=== PATIENT | female | born 1990 | race American Indian/Alaskan Native ===

== ENCOUNTER 2019-02-24 15:57 | Emergency (ER) | payer OTHER ==
--- NOTE | 2019-02-24 16:05 | Emergency Department Report ---
Blank Doc - Documentation Documentation: This is a 28-year-old female that presents with syncopal episode. Stated has headache and lightheadness. This initial assessment/diagnostic orders/clinical plan/treatment(s) is/are subject to change based on patient's health status, clinical progression and re- assessment by fellow clinical providers in the ED. Further treatment and workup at subsequent clinical providers discretion. Patient/guardians urged not to elope from the ED as their condition may be serious if not clinically assessed and managed. Initial orders include: 1- Patient sent to [facility] for further evaluation and treatment 2- EKG 3- labs
[2019-02-24 16:42] LABS: BUN/Creatinine Ratio 15; Blood Urea Nitrogen 9 mg/dL (7-17); Calcium 9.3 mg/dL (8.4-10.2); Hemolysis Index 14
[2019-02-24 17:18] LABS: Hematocrit 34.7 % (30.3-42.9); Hemoglobin 11.4 gm/dl (10.1-14.3); Mean Corpuscular HGB Conc 33 % (30-34); Mean Corpuscular Volume 88 fl (79-97); Platelet Count 262 K/mm3 (140-440); Red Blood Count 3.93 M/mm3 (3.65-5.03); Red Cell Distribution Width 15.8 % (13.2-15.2)
--- NOTE | 2019-02-24 18:04 | Cat Scan Report ---
CT head/brain wo con INDICATION: Syncope. TECHNIQUE: Routine CT head without contrast. Sagittal and coronal reformatted images were obtained. All CT scans at this location are performed using CT dose reduction for ALARA by means of automated e xposure control COMPARISON: None. FINDINGS: BRAIN / INTRACRANIAL CONTENTS: No acute hemorrhage, mass effect, midline shift, hydrocephalus, or acu te, large territorial infarct. No chronic infarct or focal atrophy. Normal brain volume and ventricul ar/sulcal size for age. Right temporal horn tip is slightly larger. No significant white matter abnor mality. Folia in the cerebellar vermis are prominent. CRANIOCERVICAL JUNCTION: No significant abnormality. ORBITS: No significant abnormality of visualized orbits. SINUSES / MASTOIDS: No significant abnormality of the visualized paranasal sinuses or mastoid air [place] ls. ADDITIONAL FINDINGS: None. IMPRESSION: I do not see an acute parenchymal lesion in the brain. Signer Name: Sheri Londono MD Signed: 02/24/2019 6:00 PM Workstation Name: [id number]
[2019-02-24] MEDS ORDERED: NACL 0.9% 1000 ML 1,000 ML ONE (18:10)
[2019-02-24] MEDS ORDERED: NACL 0.9% 1000 ML 1,000 ML IV ONE (18:13)
--- NOTE | 2019-02-24 18:13 | Emergency Department Report ---
ED Syncope HPI - General Chief Complaint: Syncope Stated Complaint: PASSED OUT Time Seen by Provider: 02/24/19 16:04 Source: patient Exam Limitations: no limitations - History of Present Illness Initial Comments: 28-year-old female presents to ED following syncopal episode at work. Patient reports flulike symptoms since yesterday which includes headache, sore throat, fever and chills, diarrhea. Patient states the only thing that she has eaten today was a couple of grapes. The patient states she sits at a desk at work. When she got ready to stand up, she felt faint and lightheaded, and then passed out. Patient denies any chest pain or shortness of breath. Timing/Prior Episodes: single episode today Precipitating Factors: Positive: lightheadedness Context: standing Loss of Consciousness: brief (seconds) Current Symptoms: back to normal - Related Data Allergies/Adverse Reactions: Allergies No Known Allergies Allergy (Verified 02/24/19 16:03) Home Medications: Ambulatory Orders Fluconazole [Diflucan 200] 150 mg PO ONCE #1 tablet 06/27/14 Ibuprofen [Motrin 800 MG tab] 800 mg PO Q8H PRN #21 tablet 06/27/14 Penicillin Vk [Veetids TAB] 500 mg PO QID #40 tablet 06/27/14 ED Review of Systems ROS: Stated complaint: PASSED OUT Other details as noted in HPI Comment: All other systems reviewed and negative Constitutional: chills, fever Respiratory: cough. denies: shortness of breath Cardiovascular: denies: chest pain Gastrointestinal: diarrhea. denies: abdominal pain, nausea, vomiting Neurological: headache ED Past Medical Hx - Past Medical History Previous Medical History?: No - Surgical History Past Surgical History?: Yes Additional Surgical History: tonsillectomy - Social History Smoking Status: Never Smoker Substance Use Type: None - Medications Home Medications: Home Medications Medication Instructions Recorded Confirmed Last Taken Type Fluconazole [Diflucan 200] 150 mg PO ONCE #1 tablet 06/27/14 Unknown Rx Ibuprofen [Motrin 800 MG tab] 800 mg PO Q8H PRN #21 tablet 14 Unknown Rx Penicillin Vk [Veetids TAB] 500 mg PO QID #40 tablet 06/27/14 Unknown Rx ED Physical Exam - General Limitations: No Limitations General appearance: alert, in no apparent distress - Head Head exam: Present: atraumatic, normocephalic - Eye Eye exam: Present: normal appearance, PERRL, EOMI - ENT ENT exam: Present: normal orophraynx, mucous membranes moist - Neck Neck exam: Present: normal inspection - Respiratory Respiratory exam: Present: normal lung sounds bilaterally. Absent: respiratory distress - Cardiovascular Cardiovascular Exam: Present: regular rate, normal rhythm - GI/Abdominal GI/Abdominal exam: Present: soft. Absent: distended, tenderness - Extremities Exam Extremities exam: Present: normal inspection - Neurological Exam Neurological exam: Present: alert, oriented X3, CN II-XII intact. Absent: motor sensory deficit - Psychiatric Psychiatric exam: Present: normal affect, normal mood - Skin Skin exam: Present: warm, dry, intact, normal color ED Course Vital Signs 02/24/19 02/24/19 02/24/19 16:04 17:15 17:26 Temperature 98.7 F Pulse Rate 81 Respiratory 18 12 Rate Blood Pressure 111/67 Blood Pressure [Left] O2 Sat by Pulse 100 100 100 Oximetry 02/24/19 02/24/19 17:29 19:27 Temperature 98.8 F Pulse Rate 86 76 Respiratory 12 21 Rate Blood Pressure Blood Pressure 103/63 129/77 [Left] O2 Sat by Pulse 100 98 Oximetry ED Medical Decision Making - Lab Data Result diagrams: 02/24/19 16:13 02/24/19 16:13 - EKG Data -: EKG Interpreted by Me EKG shows normal: sinus rhythm, axis, intervals, QRS complexes, ST-T waves Rate: normal - EKG Data Interpretation: no acute changes - Medical Decision Making Patient feeling much better at this. Vital signs stable. IV fluids given. Labs unremarkable. Will d/c home. Return precautions given. - Differential Diagnosis dehydration, , arrythmia Critical care attestation.: If time is entered above; I have spent that time in minutes in the direct care of this critically ill patient, excluding procedure time. ED Disposition Clinical Impression: Viral illness, Syncope, Dehydration Disposition: -01 TO HOME OR SELFCARE Is pt being admited?: No Condition: Stable Instructions: Dehydration (ED), Syncope (ED), Viral Syndrome (ED) Referrals: HILL VALDEZ MD [Primary Care Provider] - 3-5 Days PRIMARY CAREMD [Referring] - 3-5 Days Forms: Work/School Release Form(ED) Time of Disposition: 19:27
[2019-02-24 18:18] LABS: Bilirubin,Urine NEG (Negative); Blood,Urine NEG (Negative); Color,Urine Yellow (Yellow); Mucus,Urine 2+ /HPF; Urobilinogen,Urine < 2.0 mg/dL (<2.0)
[2019-02-24 19:24] LABS: Basophils % (Manual) 0 % (0.0-1.8); Total Cells Counted 100
[2019-02-24 19:25] LABS: Anisocytosis 1+; Platelet Estimate Consistent w Auto; Poikilocytosis 1+
[2019-02-24 19:28] VITALS: BP 129/77
== END 2019-02-24 19:37 | disposition home or self-care (01) ==
LOC: ED 15:57
DX: E86.0 Dehydration (principal); B34.9 Viral infection, unspecified; Z90.89 Acquired absence of other organs
CPT/HCPCS: 36415; 70450; 80048; 81001; 84703; 85007; 85025; 93005; 93010; 96360; 99284; J7030

== ENCOUNTER 2019-05-02 09:04 | Emergency (ER) | payer OTHER ==
[2019-05-02 09:11] VITALS: BP 104/48
[2019-05-02 09:46] LABS: Bilirubin,Urine NEG (Negative); Blood,Urine NEG (Negative); Color,Urine Yellow (Yellow); Mucus,Urine FEW /HPF; Protein,Urine <15 mg/dL mg/dL (Negative); Urobilinogen,Urine < 2.0 mg/dL (<2.0)
[2019-05-02 09:52] LABS: HCG Qualitative,Urine Negative (Negative)
--- NOTE | 2019-05-02 11:17 | Emergency Department Report ---
ED Abdominal Pain HPI - General Chief Complaint: Abdominal Pain Stated Complaint: ABDOMINAL PAIN Time Seen by Provider: 05/02/19 09:14 Source: patient Mode of arrival: Ambulatory Limitations: No Limitations - History of Present Illness Initial Comments: Patient is a 29-year-old female is presenting with 3 days of suprapubic and right flank pain. Patient states pain is 9 out of 10 in severity. Patient has some dysuria but denies urinary frequency. Patient states is been no fevers chills nausea vomiting or diarrhea. She denies vaginal discharge. - Related Data Previous Rx's Medication Instructions Recorded Last Taken Type Fluconazole [Diflucan 200] 150 mg PO ONCE #1 tablet 06/27/14 Unknown Rx Ibuprofen [Motrin 800 MG tab] 800 mg PO Q8H PRN #21 tablet 06/27/14 Unknown Rx Penicillin Vk [Veetids TAB] 500 mg PO QID #40 tablet 06/27/14 Unknown Rx metroNIDAZOLE [Flagyl] 500 mg PO Q12HR #14 tab 05/02/19 Unknown Rx Allergies Allergy/AdvReac Type Severity Reaction Status Date / Time No Known Allergies Allergy Verified 05/02/19 09:10 ED Review of Systems ROS: Stated complaint: ABDOMINAL PAIN Other details as noted in HPI Comment: All other systems reviewed and negative ED Past Medical Hx - Past Medical History Previous Medical History?: No - Surgical History Past Surgical History?: Yes Additional Surgical History: tonsillectomy - Social History Smoking Status: Light Tobacco Smoker Substance Use Type: Alcohol - Medications Home Medications: Home Medications Medication Instructions Recorded Confirmed Last Taken Type Fluconazole [Diflucan 200] 150 mg PO ONCE #1 tablet 06/27/14 Unknown Rx Ibuprofen [Motrin 800 MG tab] 800 mg PO Q8H PRN #21 tablet 06/27/14 Unknown Rx Penicillin Vk [Veetids TAB] 500 mg PO QID #40 tablet 06/27/14 Unknown Rx metroNIDAZOLE [Flagyl] 500 mg PO Q12HR #14 tab 05/02/19 Unknown Rx ED Physical Exam - General Limitations: No Limitations General appearance: alert, in no apparent distress - Head Head exam: Present: atraumatic, normocephalic - Eye Eye exam: Present: normal appearance - ENT ENT exam: Present: mucous membranes moist - Neck Neck exam: Present: normal inspection - Respiratory Respiratory exam: Present: normal lung sounds bilaterally. Absent: respiratory distress, wheezes, rales, rhonchi - Cardiovascular Cardiovascular Exam: Present: regular rate, normal rhythm. Absent: systolic murmur, diastolic murmur, rubs, gallop - GI/Abdominal GI/Abdominal exam: Present: soft, tenderness (suprapubic), normal bowel sounds. Absent: distended, guarding, rebound, rigid - External exam: Present: normal external exam Speculum exam: Present: vaginal discharge, cervical discharge Bi-manual exam: Absent: cervical motion tendernes - Extremities Exam Extremities exam: Present: normal inspection - Back Exam Back exam: Present: normal inspection. Absent: CVA tenderness (R), CVA tenderness (L) - Neurological Exam Neurological exam: Present: alert, oriented X3 - Psychiatric Psychiatric exam: Present: normal affect, normal mood - Skin Skin exam: Present: warm, dry, intact, normal color. Absent: rash ED Course Vital Signs 05/02/19 09:10 Temperature 98.3 F Pulse Rate 80 Respiratory 16 Rate Blood Pressure 104/48 [Left] O2 Sat by Pulse 95 Oximetry ED Medical Decision Making - Lab Data Lab Results 05/02/19 Range/Units 09:28 Urine Color Yellow (Yellow) Urine Turbidity Slightly-cloudy (Clear) Urine pH 6.0 (5.0-7.0) Ur Specific [place] 1.016 (1.003-1.030) Urine Protein <15 mg/dl (Negative) mg/dL Urine Glucose (UA) Neg (Negative) mg/dL Urine Ketones Neg (Negative) mg/dL Urine Blood Neg (Negative) Urine Nitrite Neg (Negative) Urine Bilirubin Neg (Negative) Urine Urobilinogen < 2.0 (<2.0) mg/dL Ur Leukocyte Esterase Neg (Negative) Urine WBC (Auto) 2.0 (0.0-6.0) /HPF Urine RBC (Auto) 2.0 (0.0-6.0) /HPF U Epithel Cells (Auto) 7.0 (0-13.0) /HPF Urine Mucus Few /HPF Urine HCG, Qual Negative (Negative) - Medical Decision Making Patient's urinalysis was inconsistent with an acute cystitis. Pelvic exam was done which show that the patient does have a white vaginal discharge. Wet prep shows the patient does have clue cells present consistent with bacterial vaginitis. Patient be started on Flagyl and discharged home. Critical care attestation.: If time is entered above; I have spent that time in minutes in the direct care of this critically ill patient, excluding procedure time. ED Disposition Clinical Impression: Bacterial vaginitis Disposition: - TO HOME OR SELFCARE Is pt being admited?: No Does the pt Need Aspirin: No Condition: Stable Instructions: Bacterial Vaginosis (ED) Referrals: PRIMARY CARE, [Primary Care Provider] - 3-5 Days Time of Disposition: 11:17
== END 2019-05-02 11:21 | disposition home or self-care (01) ==
LOC: ED 09:04
DX: N76.0 Acute vaginitis (principal); F17.200 Nicotine dependence, unspecified, uncomplicated
CPT/HCPCS: 81001; 81025; 87086; 87210; 87591

== ENCOUNTER 2019-11-29 12:19 | Outpatient (CLI) | payer MEDICAID ==
[2019-11-29] MEDS ORDERED: LACTATED RINGERS 500 ML IV ONE (12:40)
[2019-11-29 12:54] VITALS: BP 111/63
[2019-11-29 13:20] LABS: Bilirubin,Urine NEG (Negative); Blood,Urine NEG (Negative); Color,Urine Yellow (Yellow); Mucus,Urine FEW /HPF; Protein,Urine <15 mg/dL mg/dL (Negative); Urobilinogen,Urine < 2.0 mg/dL (<2.0)
[2019-11-29] MEDS ORDERED: ACETAMINOPHEN 500 MG TAB PO ONE (13:41)
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
== END 2019-11-29 18:35 | disposition home or self-care (01) ==
LOC: TRG 12:19 → APU 12:21 → TRG 18:35
PROVIDERS: ATTEND Obstetrics & Gynecology
DX: O26.892 Other specified pregnancy related conditions, second trimester (principal); R10.30 Lower abdominal pain, unspecified; M54.5 Low back pain; O99.322 Drug use complicating pregnancy, second trimester; F12.90 Cannabis use, unspecified, uncomplicated; Z3A.24 24 weeks gestation of pregnancy; Z87.891 Personal history of nicotine dependence
CPT/HCPCS: 59025; 76815; 76819; 81001; J7120; 96360

== ENCOUNTER 2019-12-01 16:09 | Outpatient (CLI) | payer MEDICAID ==
[2019-12-01] MEDS ORDERED: LACTATED RINGERS 500 ML IV ONE (16:51)
[2019-12-01 17:10] VITALS: BP 115/68
[2019-12-01 17:30] LABS: Bacteria,Urine 1+ /HPF (Negative); Bilirubin,Urine NEG (Negative); Blood,Urine NEG (Negative); Color,Urine Yellow (Yellow); Mucus,Urine FEW /HPF; Protein,Urine <15 mg/dL mg/dL (Negative); Urobilinogen,Urine < 2.0 mg/dL (<2.0)
== END 2019-12-01 18:35 | disposition left against medical advice (07) ==
LOC: TRG 16:09 → APU 16:10 → TRG 18:35
PROVIDERS: ATTEND Obstetrics & Gynecology
DX: O47.00 False labor before 37 completed weeks of gestation, unspecified trimester (principal); Z3A.00 Weeks of gestation of pregnancy not specified
CPT/HCPCS: 81001

== ENCOUNTER 2019-12-02 09:42 | Outpatient (CLI) | payer MEDICAID ==
[2019-12-02] MEDS ORDERED: LACTATED RINGERS 500 ML IV ONE (10:33)
--- NOTE | 2019-12-02 11:21 | Ultrasound Report ---
ULTRASOUND ABDOMEN, COMPLETE INDICATION: Abdominal pain COMPARISON: None available. FINDINGS: Pancreas: Normal. Abdominal Aorta: Normal. IVC: Normal. Liver: Normal. Gallbladder: Normal. Bile ducts: Normal. Common Bile Duct measures 5-6 mm. Right Kidney: Normal. Left Kidney: Normal. Spleen: Normal. Free fluid: None. Additional Findings: There is suggestion of uterine fundal fibroid measuring approximately 3 cm. IMPRESSION: 1. Common duct measures 5-6 mm in diameter which is approaching the upper limits of normal. No choled ocholithiasis or cholelithiasis. 2. No hydronephrosis. 3. Probable 3 cm uterine fundal fibroid. Signer Name: Chandan Simms MD Signed: 12/02/2019 11:17 AM Workstation Name: [id number]
== END 2019-12-02 11:42 | disposition home or self-care (01) ==
LOC: TRG 09:42 → APU 09:43 → TRG 11:42
PROVIDERS: ATTEND Obstetrics & Gynecology
DX: O26.892 Other specified pregnancy related conditions, second trimester (principal); R10.9 Unspecified abdominal pain; Z3A.25 25 weeks gestation of pregnancy
CPT/HCPCS: 59025; 76700

== ENCOUNTER 2019-12-20 19:06 | Outpatient (CLI) | payer MEDICAID, OTHER ==
[2019-12-20 19:37] VITALS: BP 128/71
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
== END 2019-12-20 22:13 | disposition left against medical advice (07) ==
LOC: TRG 19:06
PROVIDERS: ATTEND Obstetrics & Gynecology
DX: O26.892 Other specified pregnancy related conditions, second trimester (principal); Z3A.27 27 weeks gestation of pregnancy; X58.XXXD Exposure to other specified factors, subsequent encounter; Y93.89 Activity, other specified; Y92.89 Other specified places as the place of occurrence of the external cause; Y99.8 Other external cause status
CPT/HCPCS: 59025; 76815

== ENCOUNTER 2020-04-04 09:58 | Observation (INO) | payer MEDICAID ==
[2020-04-04] MEDS ORDERED: LACTATED RINGERS 1,000 ML IV SCH (10:00)
[2020-04-04] MEDS ORDERED: hydrALAZINE 20 MG/1 ML INJ IV PRN (11:04)
[2020-04-04] MEDS ORDERED: MAGNESIUM SULFATE 4 GM/100 ML BAG IV ONE (12:00)
[2020-04-04] MEDS ORDERED: CALCIUM GLUCONATE 1000 MG/10 ML INJ IV NR (12:00)
--- NOTE | 2020-04-04 12:46 | History and Physical Report ---
History of Present Illness Date of examination: 04/04/20 Date of admission: 04/04/20 10:28 Chief complaint: High blood pressure History of present illness: Pt is a 29 yo at 2 weeks s/p primary LTCS at 40 weeks EGA who presents from [employer] for severe range BP at a routine visit. BP at the office was 150/119, followed by 170/104. She denies CHAVIRA, scotomata, face/arm swelling. She is breast feeding. Past History Past Medical History: no pertinent history Past Surgical History: tonsillectomy, section Social history: no significant social history - Obstetrical History : 4 Para: 1 Hx # Term Pregnancies: 1 Spontaneous Abortions: 3 (1 ectopic, 2 SAB) Number of Living Children: 1 Medications and Allergies Allergies Allergy/AdvReac Type Severity Reaction Status Date / Time No Known Allergies Allergy Verified 05/02/19 09:10 Home Medications Medication Instructions Recorded Confirmed Last Taken Type Plus Tablet 1 tab PO DAILY 03/17/20 04/04/20 03/16/20 10:00 History Ibuprofen [Motrin] 800 mg PO Q8HR PRN #60 tablet 03/20/20 04/04/20 04/03/20 18:00 Rx oxyCODONE /ACETAMINOPHEN [Percocet 1 tab PO Q6HR PRN #30 tablet 03/20/20 04/04/20 04/03/20 22:00 Rx 5/325] Ferrous Sulfate [Feosol 325 MG tab] 325 mg PO BID #60 tablet 03/21/20 04/04/20 04/04/20 09:00 Rx Active Meds: Active Medications Calcium Gluconate (Calcium Gluconate) 1,000 mg IV PRN NR Stop: 04/04/20 23:59 Hydralazine HCl (Apresoline) 5 mg IV Q30MIN PRN PRN Reason: Hypertension Lactated Ringer's (Lactated Ringers) 1,000 mls @ 125 mls/hr IV DIRECT MUKESH Magnesium Sulfate (Magnesium Sulfate 40gm/1000ml) 40 gm in 1,000 mls @ 50 mls/hr IV DIRECT MUKESH Labetalol HCl (Labetalol) 200 mg PO BID MUKESH Review of Systems All systems: negative Eyes: no blurred vision Ears, nose, mouth and throat: no headache Cardiovascular: no edema - Vital Signs Vital signs: Vital Signs Pulse Ox 90 03/19/20 15:53 Temp Pulse Resp BP Pulse Ox 98.7 F 90 18 150/101 89 04/04/20 11:11 04/04/20 12:42 04/04/20 11:11 04/04/20 12:35 04/04/20 12:42 - Physical Exam Lungs: Positive: Normal air movement Abdomen: Positive: soft Uterus: Positive: other (fundus 1fb below umbilicus) Results Result Diagrams: 04/04/20 12:43 All other labs normal. Assessment and Plan A: 29 yo at 2 weeks Preeclampsia with severe features Lactating P: Admit to L&D PIH labs Magnesium sulfate infusion x24 hours PO Labetalol BID Rescue Hydralazine PRN Breast pumping support
[2020-04-04 12:59] LABS: Hemoglobin 13.5 gm/dl (10.1-14.3); Mean Corpuscular HGB Conc 34 % (30-34); Mean Corpuscular Volume 94 fl (79-97); Platelet Count 372 K/mm3 (140-440); Red Blood Count 4.24 M/mm3 (3.65-5.03); Red Cell Distribution Width 14.6 % (13.2-15.2)
[2020-04-04] MEDS: MAGNESIUM SULFATE 40GM/1000ML 40 GM/1,000 ML BAG IV SCH (13:17)
[2020-04-04 13:18] LABS: Alanine Aminotransferase 15 units/L (7-56); Blood Urea Nitrogen 11 mg/dL (7-17); Calcium 9.3 mg/dL (8.4-10.2); Hemolysis Index 4
[2020-04-04 13:20] LABS: BUN/Creatinine Ratio 22; Bilirubin,Direct < 0.2 mg/dL (0-0.2)
[2020-04-04 17:42] LABS: Bilirubin,Urine NEG (Negative); Blood,Urine SM (Negative); Color,Urine Colorless (Yellow); Protein,Urine <15 mg/dL mg/dL (Negative); RBC,Urine < 1.0 /HPF (0.0-6.0); Urobilinogen,Urine < 2.0 mg/dL (<2.0)
[2020-04-04] MEDS: ACETAMINOPHEN 325 MG TAB PO PRN (23:00)
--- NOTE | 2020-04-05 07:02 | Progress Note ---
Assessment and Plan A: Readmission on preeclampsia on magnesium sulfate P: Complete 24 hrs of magnesium. Pt asks to be discharged later tonight if possible. Subjective - Subjective Date of service: 04/05/20 Principal diagnosis: preeclampsia Interval history: Pt feels well. No headache, blurry vision or RUQ pain. Patient reports: appetite normal, voiding normally, pain well controlled, no ambulating normally (SCDs in place ) Objective - Vital Signs Latest vital signs: Vital Signs Temp Pulse Resp BP BP Pulse Ox 04/05/20 06:56 74 139/87 04/05/20 06:54 82 99 04/05/20 06:52 77 92 04/05/20 06:49 80 98 04/05/20 06:44 70 99 04/05/20 06:39 72 98 04/05/20 06:34 70 98 04/05/20 06:29 69 98 04/05/20 06:27 69 135/70 04/05/20 06:24 83 98 04/05/20 06:19 74 98 04/05/20 06:14 70 99 04/05/20 06:09 72 98 04/05/20 06:04 77 98 04/05/20 05:59 74 99 04/05/20 05:56 73 146/92 04/05/20 05:54 79 98 04/05/20 05:49 66 98 04/05/20 05:44 68 97 04/05/20 05:39 95 H 97 04/05/20 05:34 71 97 04/05/20 05:29 69 97 04/05/20 05:26 69 131/74 04/05/20 05:24 71 97 04/05/20 05:19 71 97 04/05/20 05:14 71 98 04/05/20 05:09 69 97 04/05/20 05:04 67 98 04/05/20 04:59 67 98 04/05/20 04:57 64 143/78 04/05/20 04:54 67 98 04/05/20 04:49 64 97 04/05/20 04:44 68 98 04/05/20 04:39 71 99 04/05/20 04:34 70 99 04/05/20 04:29 69 98 04/05/20 04:26 70 141/88 04/05/20 04:24 73 99 04/05/20 04:19 75 98 04/05/20 04:14 75 98 04/05/20 04:09 78 98 04/05/20 04:04 82 97 04/05/20 03:59 77 97 04/05/20 03:56 72 148/92 04/05/20 03:54 72 97 04/05/20 03:49 74 98 04/05/20 03:44 71 98 04/05/20 03:39 70 98 04/05/20 03:34 69 97 04/05/20 03:29 70 98 04/05/20 03:27 67 121/58 04/05/20 03:24 70 98 04/05/20 03:19 69 98 04/05/20 03:14 69 98 04/05/20 03:09 65 99 04/05/20 03:04 66 99 04/05/20 02:59 65 99 04/05/20 02:57 83 128/74 04/05/20 02:54 80 98 04/05/20 02:49 73 98 04/05/20 02:44 70 98 04/05/20 02:39 67 98 04/05/20 02:34 81 97 04/05/20 02:29 84 98 04/05/20 02:27 80 147/65 04/05/20 02:24 88 99 04/05/20 02:19 79 100 04/05/20 02:14 80 99 04/05/20 02:09 71 100 04/05/20 02:04 67 100 04/05/20 01:59 75 100 04/05/20 01:57 82 132/81 04/05/20 01:54 70 100 04/05/20 01:49 68 100 04/05/20 01:44 72 98 04/05/20 01:39 88 98 04/05/20 01:34 69 99 04/05/20 01:29 73 97 04/05/20 01:27 83 110/55 94 04/05/20 01:24 69 98 04/05/20 01:19 88 98 04/05/20 01:14 72 96 04/05/20 01:09 72 96 04/05/20 01:04 71 96 04/05/20 00:59 70 97 04/05/20 00:57 70 110/62 04/05/20 00:54 71 97 04/05/20 00:49 68 97 04/05/20 00:44 66 97 04/05/20 00:39 61 97 04/05/20 00:34 65 98 04/05/20 00:29 69 97 04/05/20 00:27 64 110/61 04/05/20 00:24 76 99 04/05/20 00:19 77 97 04/05/20 00:14 80 98 04/05/20 00:09 75 99 04/05/20 00:04 70 99 04/04/20 23:59 74 98 04/04/20 23:56 73 121/79 04/04/20 23:54 80 98 04/04/20 23:49 83 99 04/04/20 23:44 80 97 04/04/20 23:39 79 98 04/04/20 23:34 86 98 04/04/20 23:29 81 98 04/04/20 23:26 78 130/86 04/04/20 23:24 78 99 04/04/20 23:19 77 97 04/04/20 23:14 80 97 04/04/20 23:09 84 98 04/04/20 23:04 76 99 04/04/20 22:59 74 97 04/04/20 22:57 81 136/95 04/04/20 22:54 81 98 04/04/20 22:53 73 94 04/04/20 22:49 77 97 04/04/20 22:42 73 97 04/04/20 22:37 73 97 04/04/20 22:34 69 94 04/04/20 22:32 79 99 04/04/20 22:27 77 99 04/04/20 22:26 68 140/91 04/04/20 22:22 74 99 04/04/20 22:17 72 99 04/04/20 22:12 72 97 04/04/20 22:07 70 97 04/04/20 22:02 77 98 04/04/20 21:57 75 137/90 99 04/04/20 21:56 72 137/90 04/04/20 21:52 77 99 04/04/20 21:47 81 98 04/04/20 21:42 81 98 04/04/20 21:37 85 98 04/04/20 21:32 78 97 09/28/20 21:27 80 97 20 21:26 73 137/90 04/04/20 21:22 77 97 20 21:17 79 98 20 21:12 72 99 20 21:07 69 99 20 21:02 77 97 20 20:57 82 99 20 20:56 72 143/88 04/04/20 20:52 74 98 04/04/20 20:47 77 97 20 20:42 67 97 20 20:37 67 97 04/04/20 20:32 70 97 04/04/20 20:27 79 153/94 98 04/04/20 20:22 73 97 04/04/20 20:17 54 L 91 04/04/20 20:11 83 97 04/04/20 20:06 76 98 04/04/20 20:01 80 99 04/04/20 19:56 77 139/92 98 04/04/20 19:51 78 98 04/04/20 19:46 75 99 04/04/20 19:41 79 99 04/04/20 19:36 75 99 04/04/20 19:31 81 98 04/04/20 19:18 78 94 04/04/20 19:17 82 97 04/04/20 19:16 98.2 F 04/04/20 19:15 8 F L 04/04/20 19:12 83 97 04/04/20 19:07 81 98 04/04/20 19:02 79 97 04/04/20 18:57 81 152/99 100 04/04/20 18:52 76 98 04/04/20 18:47 79 99 04/04/20 18:42 80 98 04/04/20 18:37 80 98 04/04/20 18:32 75 99 04/04/20 18:27 73 152/97 98 04/04/20 18:22 77 98 04/04/20 18:17 85 98 04/04/20 18:12 91 H 98 04/04/20 18:07 81 99 04/04/20 18:02 86 100 04/04/20 17:57 85 98 04/04/20 17:56 76 138/84 04/04/20 17:52 86 98 04/04/20 17:47 82 98 04/04/20 17:42 95 H 99 04/04/20 17:37 78 100 04/04/20 17:34 75 89 04/04/20 17:32 75 100 04/04/20 17:27 75 99 04/04/20 17:26 74 145/85 04/04/20 17:22 80 95 04/04/20 17:17 78 100 04/04/20 17:12 70 98 04/04/20 17:07 76 94 04/04/20 17:02 87 98 04/04/20 17:00 87 94 04/04/20 16:57 72 99 04/04/20 16:56 75 138/88 04/04/20 16:52 78 98 04/04/20 16:47 89 99 04/04/20 16:42 71 98 04/04/20 16:37 65 98 04/04/20 16:32 77 98 04/04/20 16:27 67 141/89 100 04/04/20 16:23 74 93 04/04/20 16:22 72 94 04/04/20 16:21 72 158/84 04/04/20 16:17 73 98 04/04/20 16:12 83 98 04/04/20 16:10 100 H 92 04/04/20 16:07 80 99 04/04/20 16:06 86 137/85 04/04/20 16:02 78 97 04/04/20 16:00 98.0 F 82 16 137/85 97 04/04/20 15:57 76 97 04/04/20 15:52 82 98 04/04/20 15:51 82 137/85 04/04/20 15:47 83 99 04/04/20 15:42 90 97 04/04/20 15:37 84 96 04/04/20 15:36 81 136/81 04/04/20 15:32 79 98 04/04/20 15:27 80 98 04/04/20 15:22 79 99 04/04/20 15:21 81 134/79 04/04/20 15:17 86 99 04/04/20 15:12 81 99 04/04/20 15:07 76 96 04/04/20 15:06 80 149/87 04/04/20 15:05 84 93 04/04/20 15:02 79 97 04/04/20 14:57 77 98 04/04/20 14:52 82 100 04/04/20 14:51 82 159/87 04/04/20 14:50 77 87 04/04/20 14:48 83 132/85 04/04/20 14:47 82 99 04/04/20 14:42 82 99 04/04/20 14:37 82 98 04/04/20 14:36 74 132/85 04/04/20 14:32 74 98 04/04/20 14:27 75 98 04/04/20 14:22 69 99 04/04/20 14:21 74 139/87 04/04/20 14:17 81 98 04/04/20 14:12 77 99 04/04/20 14:07 80 96 04/04/20 14:06 74 138/85 04/04/20 14:02 78 98 04/04/20 13:57 84 99 04/04/20 13:52 80 99 04/04/20 13:51 73 141/89 04/04/20 13:47 83 97 04/04/20 13:42 73 98 04/04/20 13:37 77 99 04/04/20 13:35 79 133/84 04/04/20 13:32 80 99 04/04/20 13:30 90 125/85 88 04/04/20 13:27 86 97 04/04/20 13:25 71 134/88 04/04/20 13:22 81 99 04/04/20 13:20 75 129/84 04/04/20 13:17 80 98 04/04/20 13:15 85 136/88 04/04/20 13:12 88 99 04/04/20 13:10 87 131/88 04/04/20 13:07 78 97 04/04/20 13:05 76 131/85 04/04/20 13:02 81 100 04/04/20 13:00 80 143/92 04/04/20 12:56 78 141/93 97 04/04/20 12:51 74 142/94 98 04/04/20 12:46 69 99 04/04/20 12:42 90 89 04/04/20 12:41 89 96 04/04/20 12:36 69 98 04/04/20 12:35 70 150/101 04/04/20 12:31 66 100 04/04/20 12:29 69 94 04/04/20 12:26 69 98 04/04/20 12:21 65 135/96 99 04/04/20 12:16 63 99 04/04/20 12:11 80 99 04/04/20 12:06 52 L 144/95 92 04/04/20 12:00 73 100 04/04/20 11:55 67 98 04/04/20 11:50 61 160/100 99 04/04/20 11:45 72 100 04/04/20 11:40 61 100 04/04/20 11:36 60 157/98 04/04/20 11:35 61 97 04/04/20 11:30 55 L 99 04/04/20 11:24 55 L 99 04/04/20 11:20 53 L 137/84 04/04/20 11:19 68 98 04/04/20 11:14 64 99 04/04/20 11:11 98.7 F 53 L 18 138/80 99 04/04/20 11:09 61 98 04/04/20 11:06 60 138/80 Intake and Output 04/04/20 04/04/20 04/05/20 14:59 22:59 06:59 Intake Total 1300 Output Total 400 1450 400 Balance -400 -150 -400 Intake: Oral 1300 Output: Urine 400 1450 400 Void 400 1450 400 Other: Total, Intake Amount 800 Total, Output Amount 200 350 400 Weight 86.636 kg Patient Weight 04/05/20 06:59 Weight 86.636 kg - Exam Breasts: Present: deferred Abdomen: Present: soft Extremities: Present: edema (trace ) - Labs Labs: Abnormal lab results 04/04/20 04/04/20 04/04/20 Range/Units 12:43 12:43 16:05 WBC 4.0 L (4.5-11.0) K/mm3 Chloride 107.6 H (98-107) mmol/L Creatinine 0.5 L (0.6-1.2) mg/dL Magnesium 4.20 H (1.7-2.3) mg/dL 04/04/20 Range/Units 23:09 WBC (4.5-11.0) K/mm3 Chloride (98-107) mmol/L Creatinine (0.6-1.2) mg/dL Magnesium 5.40 H (1.7-2.3) mg/dL
[2020-04-05] MEDS: MAGNESIUM SULFATE 40GM/1000ML 40 GM/1,000 ML BAG IV SCH (08:07)
[2020-04-05] MEDS: ACETAMINOPHEN 325 MG TAB PO PRN (09:40)
[2020-04-05] MEDS ORDERED: BUTALB/ACETAMINOPHEN/CAFFEINE TAB PO PRN (11:55)
[2020-04-05] MEDS ORDERED: IBUPROFEN 600 MG TAB PO PRN (15:00)
--- NOTE | 2020-04-05 21:13 | Discharge Summary ---
Providers - Providers Date of Admission: 04/04/20 10:28 Date of discharge: 04/05/20 Attending physician: ELSA WALKER Primary care physician: LESA WALKER Hospitalization Reason for admission: other ( Preeclampsia ) Procedure details: IV Magnesium sulfate and PO Labetalol administration Discharge diagnosis: other ( Preeclampsia ) Hospital course: This patient was admitted for preeclampsia. She received 24 hours of IV magnesium sulfate for seizure prophylaxis. She was also started on labetalol 200 mg twice daily. At discharge her blood pressures remain below 160/110. The patient will follow-up in 2 days in the office for blood pressure check. Per patient request she has been discharged tonight rather than in the morning. Condition at discharge: Stable Disposition: - TO HOME OR SELFCARE - Discharge Diagnoses (1) Preeclampsia in period Status: Acute (2) Obesity (BMI 30.0-34.9) Status: Acute Plan - Provider Discharge Summary Activity: routine Diet: routine Instructions: routine Additional instructions: [] Smoking cessation referral if applicable(refer to patient education folder for contact #) [] Refer to [facility] Booklet Call your doctor immediately for: * Fever > 100.5 * Heavy vaginal bleeding ( >1 pad per hour) * Severe persistent headache * Shortness of breath * Reddened, hot, painful area to leg or breast * Drainage or odor from incision. * Keep incision clean and dry at all times and follow doctor's instructions regarding bathing/showering - Follow up plan Follow up: REX JACOBS CNM [Advanced Practice Nurse] - 04/07/20 (Please schedule blood pressure check )
[2020-04-05 21:59] VITALS: BP 166/91
[2020-04-05 22:32] LABS: Mucus,Urine 3+ /HPF
[2020-04-06 03:15] LABS: Bacteria,Urine 1+ /HPF (Negative)
== END 2020-04-05 23:25 | disposition home or self-care (01) ==
LOC: UNDOADMIN 09:58 → 3A 09:58 → INTOOBSV 10:28 → LD 10:28 → OB 04-05 14:39
PROVIDERS: ADMIT Obstetrics & Gynecology; ATTEND Obstetrics & Gynecology
DX: O14.95 Unspecified pre-eclampsia, complicating the puerperium (principal); Z20.828 Contact with and (suspected) exposure to other viral communicable diseases; O16.5 Unspecified maternal hypertension, complicating the puerperium; O99.215 Obesity complicating the puerperium; E66.9 Obesity, unspecified; Z68.32 Body mass index [BMI] 32.0-32.9, adult
CPT/HCPCS: 36415; 80048; 80076; 81001; 83735; 84550; 85027; 96361; 96365; 96366; G0378; G0379; J3475; J7120; U0003